=== PATIENT | female | born 1995 | race American Indian/Alaskan Native ===

== ENCOUNTER 2017-07-22 18:05 | Emergency (ER) | payer OTHER, BC ==
[2017-07-22 18:20] VITALS: BP 116/67
[2017-07-22] MEDS ORDERED: NORCO 5/325 PO ONE (22:16)
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
== END 2017-07-22 23:20 | disposition home or self-care (01) ==
LOC: ED 18:05
DX: S20.411A Abrasion of right back wall of thorax, initial encounter (principal); S96.911A Strain of unspecified muscle and tendon at ankle and foot level, right foot, initial encounter; M25.511 Pain in right shoulder; Z91.018 Allergy to other foods; Z88.8 Allergy status to other drugs, medicaments and biological substances; Z91.013 Allergy to seafood; V43.12XA Car passenger injured in collision with other type car in nontraffic accident, initial encounter; Y93.89 Activity, other specified; Y92.89 Other specified places as the place of occurrence of the external cause; Y99.8 Other external cause status
CPT/HCPCS: 99283